=== PATIENT | male | born 2000 | race Caucasian/White ===

== ENCOUNTER 2022-07-15 20:46 | Emergency (ER) | payer OTHER ==
[~2022-07-15] VITALS: Ht 177.8 cm; Wt 79.4 kg
[2022-07-15] MEDS ORDERED: IBUPROFEN 600 MG TAB PO STA (21:16)
[2022-07-15] MEDS ORDERED: HYDROCODON-ACE1 EA12 PO (21:25)
[2022-07-15] MEDS ORDERED: IBUPROFEN600 MG PO (21:26)
[2022-07-15] MEDS ORDERED: HYDROCODONE/APAP 5MG-325MG TAB PO ONE (21:30)
[2022-07-15] MEDS ORDERED: IBUPROFEN 600 MG TAB ONE (21:36)
[2022-07-15] MEDS ORDERED: HYDROCODONE/APAP 5MG-325MG TAB ONE (21:36)
== END 2022-07-15 22:13 | disposition home or self-care (01) ==
LOC: FSED 20:50
DX: K62.89 Other specified diseases of anus and rectum (principal); K64.5 Perianal venous thrombosis; F41.9 Anxiety disorder, unspecified
CPT/HCPCS: 99283